=== PATIENT | female | born 1940 | race Caucasian/White ===

== ENCOUNTER 2017-02-06 10:05 | Emergency (ER) | payer OTHER, MEDICARE ==
[2017-02-06 10:14] VITALS: RESP 16
--- NOTE | 2017-02-06 10:21 | EDPHY ---
H & P Time Seen by Provider: 02/06/17 10:10 HPI/ROS: This patient had a Mohs procedure with Dr. Mahoney at [facility] on Wednesday without complication to the left infraorbital region with sutures placed at the site. However, she reports onset of pain and increased swelling to the lower eyelid starting last night at about 11:00 p.m.. She states the pain was severe for sometime but has diminished after taking 400 mg of ibuprofen at 8:00 a.m. this morning to current mild to moderate discomfort. She denies any other associated symptoms. ROS: No subjective fevers or chills. No other constitutional symptoms HEENT: She reports no symptoms to the eye itself. No vision changes or ocular pain on the affected side. Neuro: No numbness tingling weakness. No generalized headache or confusion. No neck stiffness. Integumentary: No skin rash elsewhere. Pulmonary: No wheezing or shortness of breath. 7 point ROS is otherwise negative. Smoking Status: Never smoked Physical Exam: Physical Exam Vital signs are normal. General: No acute distress HEENT: The patient has left infraorbital swelling to the lower eyelid that nearly occludes the eye though she is still able open the eye approximately 0.5 cm. There is confluent erythema to lower eyelid that extends few cm below this area to the Prolene sutures that extend to the left upper zygoma region. The lower eyelid swelling feels potentially fluctuant verses Welch edema. Eyes: Pupils equal and react to light. Extraocular motions are intact. There is no conjunctival injection to the affected eye. Neck: Supple Lungs: No respiratory distress. Cardiac: Brisk capillary refill is intact throughout. Skin: See HEENT exam above. No skin rash elsewhere. Neuro: Alert and oriented x3 with no sensorimotor deficits. Cranial nerves 2- 12 are intact Initial differential diagnosis: Postop wound infection-cellulitis versus abscess with cellulitis to face Constitutional: Initial Vital Signs Temperature (C) 36.9 C 02/06/17 10:12 Heart Rate 72 02/06/17 10:12 Respiratory Rate 16 02/06/17 10:12 Blood Pressure 151/94 H 02/06/17 10:12 O2 Sat (%) 97 02/06/17 10:12 O2 Delivery Mode Room Air Allergies/Adverse Reactions: No Known Allergies Allergy (Unverified 05/13/17 10:15) Home Medications: Medication Instructions Recorded Cephalexin [Keflex (*)] 500 mg PO TID #30 cap 02/06/17 Lisinopril 02/06/17 MDM/Departure - MDM Procedures: Wound site hematoma aspiration/needle I&D After verbal consent using chlorhexidine scrub and sterile technique I used 1% plain lidocaine with sodium bicarb buffer, 30 gauge needle-1 mL with good effect at the suture line upper portion site of infraorbital swelling versus fluctuance versus hematoma. I then used an 18 gauge needle and withdrew blood and blood clots. 1 mL in the syringe and then with massage obtained moderate and further amount. Also sent a swab for culture find no significant purulence. Patient tolerated this well. She held sterile gauze to the I&D site/ aspiration site for 5 minutes with good hemostasis thereafter. There were no complications. ED Course/Re-evaluation: Studies: CBC reveals slight elevation of white count 9.7 with a left shift. Wound cultures pending. IV ceftriaxone 1 g I spoke with Dr[address] Zapata electronic gluer for [facility] and then with Dr. Mahoney, the patient's digital archivist who performed a Mohs procedure. He agrees with the treatment plan would like to see her on her scheduled follow-up appointment this coming Wednesday provided she is doing well with our treatment plan of Keflex orally as an outpatient and warm packs to the affected area. Discussion: Superficial wound infection without evidence for abscess. Swelling of the eyelid was consistent with hematoma. No evidence of orbital cellulitis, DEVELOPER EVANGELIST infection or other concerning findings. No clinical evidence of ocular involvement currently. - Depart Disposition: Home, Routine, Self-Care Clinical Impression: Postoperative wound infection Qualifiers: Encounter type: initial encounter Qualified Code(s): T81.4XXA - Infection following a procedure, initial encounter Postoperative hematoma Qualifiers: Surgical complication system/body Area: eye Laterality: left Condition: Good Instructions: Cellulitis (ED) Additional Instructions: Diagnosis: Postoperative superficial wound infection 2. Postoperative infraorbital hematoma Plan: Apply warm packs to the affected area 2 to 3 times a day until symptoms resolve Keflex antibiotic as prescribed Gently clean the wound daily Follow up with Dr. Mahoney her either Wednesday in his [place] office or Wednesday in [place]. Ibuprofen or Tylenol if needed for discomfort Return to the emergency department for any significant worsening despite the treatment plan Prescriptions: Cephalexin [Keflex (*)] 500 mg PO TID #30 cap Referrals: SHARYN MOY [Primary Care Provider] - As per Instructions
[2017-02-06 10:30] VITALS: TEMP 98.4
[2017-02-06 10:40] LABS: % IMMATURE GRANULYOCYTES 0.4 % (0.0-1.1); ABSOLUTE IMMATURE GRANULOCYTES 0.04 10^3/uL (0.00-0.10); ADD DIFF? NO; ADD MORPH? NO; ADD SCAN? NO; ATYPICAL LYMPHOCYTE FLAG 10 (0-99); FRAGMENT RBC FLAG 0 (0-99); HEMATOCRIT 44.4 % (38.0-47.0); LEFT SHIFT FLG 0 (0-99); LIPEMIA HEMOLYSIS FLAG 90 (0-99); MEAN CELL HEMOGLOBIN 31.2 pg (27.9-34.1); MEAN CELL HEMOGLOBIN CONCENTR. 33.8 g/dL (32.4-36.7); MEAN CELL VOLUME 92.3 fL (81.5-99.8); MEAN PLATELET VOLUME 10.2 fL (8.7-11.7); PLATELET CLUMPS FLAG 10 (0-99); PLATELET COUNT 212 10^3/uL (150-400); RED BLOOD CELL COUNT 4.81 10^6/uL (4.18-5.33)
[2017-02-06 10:59] LABS: ANION GAP 14 mEq/L (8-16); CALCIUM 9.1 mg/dL (8.5-10.4); CARBON DIOXIDE 22 mEq/l (22-31); CHLORIDE 107 mEq/L (97-110); CREATININE 0.8 mg/dL (0.6-1.0); GLOMERULAR FILTRATION RATE > 60; GLUCOSE 90 mg/dL (70-100); POTASSIUM 4.3 mEq/L (3.5-5.2); SODIUM 143 mEq/L (134-144)
[2017-02-06 12:23] VITALS: BP 144/81; PULSE 61; O2SAT 95
== END 2017-02-06 12:13 | disposition home or self-care (01) ==
LOC: CED 10:05
DX: L76.21 Postprocedural hemorrhage of skin and subcutaneous tissue following a dermatologic procedure (principal); T81.4XXA Infection following a procedure, initial encounter; Y82.8 Other medical devices associated with adverse incidents
CPT/HCPCS: 96365; 99284; J0696; 80048-PO; 85025-PO

== ENCOUNTER 2017-02-16 14:45 | Emergency (ER) | payer OTHER, MEDICARE ==
[2017-02-16 14:53] VITALS: RESP 17; TEMP 98.1
--- NOTE | 2017-02-16 15:06 | EDPHY ---
HPI/HX/ROS/PE/MDM Narrative: CHIEF COMPLAINT: Suspected facial wound infection HPI: This patient is a 76-year-old female who presents to the Emergency Department complaining of persistent generalized malaise and myalgias that she attributes to a wound infection following Mohs procedure to the left infraorbital region performed by Dr. Mahoney on 02/03. Three days following the procedure, she started to experience pain to the surgical site and intermittent subjective fever. She was started on Keflex at that time for suspected wound infection without improvement. She switched to Bactrim 9 days ago after culture results were positive for MRSA. She presents today concerned that she "feels terrible" and complains of persistent myalgias and left-sided facial and periorbital swelling. She also reports intermittent subjective fevers. She denies pain at the site of the wound. No urinary complaints, nausea, vomiting, or diarrhea. She has not been exposed to anyone else with similar symptoms. She did have a flu shot this year. REVIEW OF SYSTEMS: Aside from elements discussed in the HPI, a comprehensive 10-point review of systems was reviewed and is negative. PMH: Hypertension. SOCIAL HISTORY: Retired. Daughter, Dr. María Avina, works as a hospitalist here at [employer]. PHYSICAL EXAM: General:Patient is alert, in no acute distress. ENT:Eyes are normal to inspection. Small surgical site to left cheek with surrounding induration; no erythema. ENT inspection otherwise normal. Neck: Normal inspection. Full range of motion. Respiratory:No respiratory distress. Breath sounds normal bilaterally. Cardiovascular: Regular rate and rhythm. Strong peripheral pulses. Normal cap refill. Abdomen:The abdomen is nontender to palpation. There are no peritoneal signs. There are normal bowel sounds. Back: Normal to inspection. No tenderness to palpation. Skin: Normal color. No rash. Warm and dry. Extremities: Normal appearance. Full range of motion. Neuro: Oriented x3. Normal motor function. Normal sensory function. ED Course: This 76-year-old female presents with complaints of diffuse myalgias, intermittent subjective fever, and generalized malaise that she attributes to a persistent cellulitis following Mohs procedure to left cheek on 02/03. She is alert and well-appearing at time of exam. The area surrounding the surgical site is not erythematous or warm. I discussed with her my recommendation that we also evaluate alternate etiological explanations. Plan for labs, including cultures, and chest x-ray. She is agreeable to this. Chest x-ray reviewed by me reveals no acute disease. Labs obtained and are unremarkable. 1756: On reevaluation, the patient is resting comfortably. I discussed lab and imaging results with the patient. We are awaiting flu screen results at this time 1859: Flu screen is negative. I discussed this with the patient as well as plan for follow-up with her PCP for further evaluation if she is not feeling improved within the next 2-3 days. She will be discharged home in good condition with customary return precautions. - Data Points Imaging Results: Imaging Impressions Chest X-Ray 02/16/17 15:18 Impression: 1. Small bilateral pleural effusions. 2. No underlying consolidation. Laboratory Results: Laboratory Results 02/16/17 15:40 02/16/17 15:40 02/16/17 02/16/17 02/16/17 16:10 16:10 15:40 WBC RBC Hgb Hct MCV MCH MCHC RDW Plt Count MPV Neut % (Auto) Lymph % (Auto) Desha % (Auto) Eos % (Auto) Baso % (Auto) Nucleat RBC Rel Count Absolute Neuts (auto) Absolute Lymphs (auto) Absolute Monos (auto) Absolute Eos (auto) Absolute Basos (auto) Absolute Nucleated RBC Immature Gran % Immature Gran # Sodium 139 mEq/L mEq/L (134-144) Potassium 4.9 mEq/L mEq/L (3.5-5.2) Chloride 104 mEq/L mEq/L (97-110) Carbon Dioxide 21 mEq/l L mEq/l (22-31) Anion Gap 14 mEq/L mEq/L (8-16) BUN 16 mg/dL mg/dL (7-23) Creatinine 1.1 mg/dL H mg/dL (0.6-1.0) Estimated GFR 49 Glucose 95 mg/dL mg/dL (70-100) Calcium 9.8 mg/dL mg/dL (8.5-10.4) Troponin I < 0.012 ng/mL ng/mL (0-0.034) Influenza A & B (PCR) NEGATIVE FOR FLU (NEGATIVE) Influenza A,B Rapid Cancelled 02/16/17 15:40 WBC 7.77 10^3/uL 10^3/uL (3.80-9.50) RBC 4.80 10^6/uL 10^6/uL (4.18-5.33) Hgb 14.9 g/dL g/dL (12.6-16.3) Hct 44.6 % % (38.0-47.0) MCV 92.9 fL fL (81.5-99.8) MCH 31.0 pg pg (27.9-34.1) MCHC 33.4 g/dL g/dL (32.4-36.7) RDW 12.6 % % (11.5-15.2) Plt Count 228 10^3/uL 10^3/uL (150-400) MPV 9.7 fL fL (8.7-11.7) Neut % (Auto) 85.1 % H % (39.3-74.2) Lymph % (Auto) 7.1 % L % (15.0-45.0) Desha % (Auto) 5.7 % % (4.5-13.0) Eos % (Auto) 1.2 % % (0.6-7.6) Baso % (Auto) 0.6 % % (0.3-1.7) Nucleat RBC Rel Count 0.0 % % (0.0-0.2) Absolute Neuts (auto) 6.62 10^3/uL H 10^3/uL (1.70-6.50) Absolute Lymphs (auto) 0.55 10^3/uL L 10^3/uL (1.00-3.00) Absolute Monos (auto) 0.44 10^3/uL 10^3/uL (0.30-0.80) Absolute Eos (auto) 0.09 10^3/uL 10^3/uL (0.03-0.40) Absolute Basos (auto) 0.05 10^3/uL 10^3/uL (0.02-0.10) Absolute Nucleated RBC 0.00 10^3/uL 10^3/uL (0-0.01) Immature Gran % 0.3 % % (0.0-1.1) Immature Gran # 0.02 10^3/uL 10^3/uL (0.00-0.10) Sodium Potassium Chloride Carbon Dioxide Anion Gap BUN Creatinine Estimated GFR Glucose Calcium Troponin I Influenza A & B (PCR) Influenza A,B Rapid General Time Seen by Provider: 02/16/17 15:05 Initial Vital Signs: Initial Vital Signs Temperature (C) 36.7 C 02/16/17 14:50 Heart Rate 88 02/16/17 14:50 Respiratory Rate 17 02/16/17 14:50 Blood Pressure 137/78 H 02/16/17 14:50 O2 Sat (%) 97 02/16/17 14:50 O2 Delivery Mode Room Air Allergies/Adverse Reactions: No Known Allergies Allergy (Verified 02/16/17 14:49) Home Medications: Medication Instructions Recorded Lisinopril 02/06/17 Bactrim DS 02/16/17 Departure - Departure Disposition: Home, Routine, Self-Care Clinical Impression: Malaise Condition: Good Instructions: Fatigue (ED) Additional Instructions: 1. Follow-up with your primary care provider if you have not returned to feeling normal in the next 2-3 days. 2. Return to the Emergency Department if you experience increased facial swelling or pain, high uncontrollable fever, worsening fatigue, chills, lightheadedness or weakness, or other serious concerns. Referrals: SHARYN MOY [Primary Care Provider] - As per Instructions Report Scribed for: Siomara Quintana Report Scribed by: Tiffanie Mcintosh Date of Report: 02/16/17 Time of Report: 15:06 Physician Review and Approval Statement: Portions of this note were transcribed by an ED scribe. I personally performed the history, physical exam, and medical decision making; and confirm the accuracy of the information in the transcribed note.
[2017-02-16 15:49] LABS: % IMMATURE GRANULYOCYTES 0.3 % (0.0-1.1); ABSOLUTE IMMATURE GRANULOCYTES 0.02 10^3/uL (0.00-0.10); ADD DIFF? NO; ADD MORPH? NO; ADD SCAN? NO; ATYPICAL LYMPHOCYTE FLAG 20 (0-99); FRAGMENT RBC FLAG 0 (0-99); HEMATOCRIT 44.6 % (38.0-47.0); HEMOGLOBIN 14.9 g/dL (12.6-16.3); LEFT SHIFT FLG 0 (0-99); LIPEMIA HEMOLYSIS FLAG 80 (0-99); MEAN CELL HEMOGLOBIN CONCENTR. 33.4 g/dL (32.4-36.7); MEAN CELL VOLUME 92.9 fL (81.5-99.8); MEAN PLATELET VOLUME 9.7 fL (8.7-11.7); PLATELET CLUMPS FLAG 0 (0-99); PLATELET COUNT 228 10^3/uL (150-400); RED CELL DISTRIBUTION WIDTH 12.6 % (11.5-15.2)
[2017-02-16 16:04] LABS: ANION GAP 14 mEq/L (8-16); CALCIUM 9.8 mg/dL (8.5-10.4); CARBON DIOXIDE 21 mEq/l (22-31); CHLORIDE 104 mEq/L (97-110); CREATININE 1.1 mg/dL (0.6-1.0); GLOMERULAR FILTRATION RATE 49; GLUCOSE 95 mg/dL (70-100); POTASSIUM 4.9 mEq/L (3.5-5.2); SODIUM 139 mEq/L (134-144)
[2017-02-16 16:15] LABS: TROPONIN I < 0.012 ng/mL (0-0.034)
[2017-02-16 19:02] VITALS: BP 134/72; PULSE 77; O2SAT 92
== END 2017-02-16 19:19 | disposition home or self-care (01) ==
DX: R53.81 Other malaise (principal); I10 Essential (primary) hypertension

== ENCOUNTER → 2018-08-30 | Outpatient (CLI) | payer OTHER, MEDICARE | LOC: FIMAGING 09:37 | PROVIDERS: ATTEND Internal Medicine | DX: Z12.31 Encounter for screening mammogram for malignant neoplasm of breast (principal); Z85.3 Personal history of malignant neoplasm of breast ==